=== PATIENT | female | born 1990 | race American Indian/Alaskan Native ===

== ENCOUNTER 2017-02-02 23:54 | Emergency (ER) | payer MEDICAID ==
[2017-02-02 23:56] VITALS: BMI 36.3
[2017-02-03] MEDS ORDERED: Oxycodone/Acetaminophen 5/325 mg Tab PO STA (00:44)
--- NOTE | 2017-02-03 00:48 | ED PDOC ---
Arrival/HPI - General Chief Complaint: Hip Pain Time Seen by Provider: 02/03/17 00:36 Historian: Patient - History of Present Illness Narrative History of Present Illness (Text): 02/03/17 00:45 26 y/o female, pmh including bilateral SCFE hips, nkda, c/o rt. hip pain for years with no new injury or fall. Pt. stated that she has rt. hip pain for years, on and off, started to become more painful this week, xray show no fracture or dislocation, pain radiating from the rt. hip to the rt. calf, no numbness or tingling, no back pain, no dizziness, no other medical or psychological complaints. Past Medical History - Provider Review Nursing Documentation Reviewed: Yes - Infectious Disease Hx of Infectious Diseases: None - Cardiac Hx Cardiac Disorders: No - Pulmonary Hx Respiratory Disorders: No - Neurological Hx Neurological Disorder: No - HEENT Hx HEENT Disorder: No - Renal Hx Renal Disorder: No - Endocrine/Metabolic Hx Endocrine Disorders: No - Hematological/Oncological Hx Blood Disorders: No - Integumentary Hx Dermatological Disorder: No - Musculoskeletal/Rheumatological Hx Musculoskeletal Disorders: No - Gastrointestinal Hx Gastrointestinal Disorders: No - Genitourinary/Gynecological Hx Genitourinary Disorders: No - Psychiatric Hx Psychophysiologic Disorder: No Hx Substance Use: No - Surgical History Hx Orthopedic Surgery: Yes Other/Comment: surgery to place pins in both hips - Anesthesia Hx Anesthesia: Yes Family/Social History - Physician Review Nursing Documentation Reviewed: Yes Family/Social History: Unknown Family HX Smoking Status: Light Smoker < 10 Cigarettes Daily Hx Alcohol Use: Yes Frequency of alcohol use: Socially Hx Substance Use: No Allergies/Home Meds Allergies/Adverse Reactions: Allergies No Known Allergies Allergy (Verified 02/03/17 00:14) Review of Systems - Review of Systems Constitutional: absent: Fatigue, Fevers Eyes: absent: Vision Changes ENT: absent: Hearing Changes Respiratory: absent: Cough Cardiovascular: absent: Chest Pain Gastrointestinal: absent: Abdominal Pain, Nausea, Vomiting Musculoskeletal: Arthralgias, Myalgias. absent: Back Pain, Neck Pain, Joint Swelling Neurological: absent: Headache, Dizziness, Focal Weakness, Gait Changes Psychiatric: absent: Anxiety, Depression, Suicidal Ideation Physical Exam Vital Signs Reviewed: Yes Vital Signs Temp Pulse Resp BP Pulse Ox 02/02/17 23:56 98.4 F 53 L 16 141/62 98 Temperature: Afebrile Blood Pressure: Normal Pulse: Regular Respiratory Rate: Normal Appearance: Positive for: Well-Appearing, Non-Toxic, Comfortable Pain Distress: Severe Mental Status: Positive for: Alert and Oriented X 3 - Systems Exam Head: Present: Atraumatic, Normocephalic Pupils: Present: PERRL Extroacular Muscles: Present: EOMI Conjunctiva: Present: Normal Mouth: Present: Moist Mucous Membranes Neck: Present: Normal Range of Motion Respiratory/Chest: Present: Clear to Auscultation, Good Air Exchange. No: Respiratory Distress, Accessory Muscle Use Cardiovascular: Present: Regular Rate and Rhythm, Normal S1, S2. No: Murmurs Abdomen: Present: Normal Bowel Sounds. No: Tenderness, Distention, Peritoneal Signs Back: Present: Normal Inspection Upper Extremity: Present: Normal Inspection. No: Cyanosis, Edema Lower Extremity: Present: Normal Inspection, Other (painful to move the rt. hip , +ttp on the rt. calf region, FROM without limitation, sensation intact, motor 5/5, +DPPT pulses, no erythematous, no cellulitis, no streaking). No: Edema Neurological: Present: GCS=15, CN II-XII Intact, Speech Normal Skin: Present: Warm, Dry, Normal Color. No: Rashes Psychiatric: Present: Alert, Oriented x 3, Normal Insight, Normal Concentration Medical Decision Making ED Course and Treatment: 02/03/17 00:48 -RLE venuous doppler -Rt. hip CT -Toradol and percocet -observe and reassess 02/03/17 01:56 -RLE Venuous Doppler: as pre preliminary report, there is no acute DVT -CT Rt. hip show degenerative joint changes with subchondrol cyst, no acute fracture or loosen screws. -Pain decreased and pt. feels much better. -I spent 15 minutes talking to the patient about weight loss and outpatient orthopedic follow up which will decrease her pain. -Discharge home with crutches, naproxen, non-weight bearing, follow up with your own pmd and orthopedic within2 days, weightloss will be ideal, return to the ER for any new or worsening signs or symptoms. - RAD Interpretation Radiology Orders: 02/03/17 00:44 HIP WITHOUT CONTRAST RIGHT [CT] Stat DUPLEX LOWER EXTRM VEIN RIGHT [US] Stat RLE Venuous Doppler: as pre preliminary report, there is no acute DVT CT Rt. hip: FINDINGS: Bones/joints: Bilateral femoral screws are seen. No juliann-hardware lucency or evidence of loosening or infection. There are mild/moderate degenerative changes of the hip joint, with several small subchondral cysts in the superior lateral acetabulum. No acute fracture. No dislocation. No joint effusion. Soft tissues: Unremarkable. IMPRESSION: No acute findings.Other findings as described. Thank you for allowing us to participate in the care of your patient. 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 Disposition/Present on Arrival - Present on Arrival Any Indicators Present on Arrival: No History of DVT/PE: No History of Uncontrolled Diabetes: No Urinary Catheter: No History of Decub. Ulcer: No History Surgical Site Infection Following: None - Disposition Have Diagnosis and Disposition been Completed?: Yes Diagnosis: Subchondral cyst, Degenerative joint disease (DJD) of hip Disposition: HOME/ ROUTINE Disposition Time: 01:58 Patient Plan: Discharge Condition: IMPROVED Additional Instructions: Discharge home with crutches, naproxen, non-weight bearing, follow up with your own pmd and orthopedic within2 days, weightloss will be ideal, return to the ER for any new or worsening signs or symptoms. Prescriptions: Naproxen 500 mg PO BID PRN #24 tab PRN Reason: Other Referrals: Sin uDrant MD [Staff Provider] - [facility] up with primary [facility] [Outside] - Follow up with primary Forms: WORK NOTE
[2017-02-03 01:02] VITALS: RESP 16
[2017-02-03 02:14] VITALS: BP 156/76; PULSE 55; TEMP 97.8; O2SAT 100
--- NOTE | 2017-02-03 08:34 | CT ---
Indication: rt. hip pain for years Noncontrast CT of the right hip Comparison: None available. Technique: Noncontrast axial images of the right hip. Sagittal and coronal reformatted images were generated and reviewed. This CT exam was performed using 1 or more of the falling dose reduction techniques: Automated exposure control, adjustment of the MAA and/or kV according to patient size, and/or use of iterative reconstruction technique. Total exam DLP: 1162.55 Findings: Examination limited by habitus. Bilateral femoral screws. No perihardware lucency or evidence of hardware loosening or infection. Mild to moderate degenerative changes of the hip. Subchondral cysts are noted within the superior lateral acetabulum. No acute fracture. No dislocation. No significant joint effusion. The soft tissues appear unremarkable. Limited visualization of the intrapelvic contents appear grossly unremarkable. The uterus is present. All lymph nodes, nonspecific. Impression: No acute findings. See above. Preliminary impression was provided by virtual radiologic.
--- NOTE | 2017-02-03 21:46 | US ---
PROCEDURE: Right lower extremity venous US HISTORY: Leg pain and swelling. Evaluate for DVT. PHYSICIAN(S): Jimbo Gonzales M.D. TECHNIQUE: Duplex sonography and color-flow Doppler with graded compression were used to evaluate the deep venous system of the right lower extremity. FINDINGS: The visualized deep venous system of the right lower extremity is sonographically normal and compressible. Normal waveforms and augmentation are seen. There is no sonographic evidence for deep venous thrombosis in the visualized segments of the right lower extremity. IMPRESSION: 1. No sonographic evidence for deep venous thrombosis in the visualized segments of the right lower extremity.
== END 2017-02-03 02:19 | disposition home or self-care (01) ==
LOC: ED 23:54
DX: M16.11 Unilateral primary osteoarthritis, right hip (principal); M25.851 Other specified joint disorders, right hip
CPT/HCPCS: 73700; 93971; 96372; 99284; J1885

== ENCOUNTER 2017-07-30 16:47 | Emergency (ER) | payer MEDICAID ==
[2017-07-30 16:47] VITALS: BMI 36.3
[2017-07-30 17:03] VITALS: RESP 18; TEMP 97.5
--- NOTE | 2017-07-30 17:20 | ED PDOC ---
Arrival/HPI - General Chief Complaint: Upper Extremity Problem/Injury Time Seen by Provider: 07/30/17 17:08 - History of Present Illness Narrative History of Present Illness (Text): 26 y/o F c PMHx SCFE (can not undergo MRI) p/w L shoulder pain x 6 months. Pain is sharp, sudden, worse with moving shoulder or lifting weight. Denies fever, injury, numbness, weakness. Past Medical History - Infectious Disease Hx of Infectious Diseases: None - Cardiac Hx Cardiac Disorders: No - Pulmonary Hx Respiratory Disorders: No - Neurological Hx Neurological Disorder: No - HEENT Hx HEENT Disorder: No - Renal Hx Renal Disorder: No - Endocrine/Metabolic Hx Endocrine Disorders: No - Hematological/Oncological Hx Blood Disorders: No - Integumentary Hx Dermatological Disorder: No - Musculoskeletal/Rheumatological Hx Musculoskeletal Disorders: No - Gastrointestinal Hx Gastrointestinal Disorders: No - Genitourinary/Gynecological Hx Genitourinary Disorders: No - Psychiatric Hx Psychophysiologic Disorder: No Hx Substance Use: No - Surgical History Hx Orthopedic Surgery: Yes Other/Comment: surgery to place pins in both hips - Anesthesia Hx Anesthesia: Yes Family/Social History Family/Social History: No Known Family HX Smoking Status: Light Smoker < 10 Cigarettes Daily Hx Alcohol Use: Yes Frequency of alcohol use: Socially Hx Substance Use: No Allergies/Home Meds Allergies/Adverse Reactions: Allergies No Known Allergies Allergy (Verified 07/30/17 17:03) Home Medications: Home Meds Medication Instructions Recorded Confirmed No Known Home Med 07/30/17 07/30/17 Review of Systems - Physician Review All systems were reviewed & negative as marked: Yes - Review of Systems Constitutional: absent: Fevers Cardiovascular: absent: Chest Pain Physical Exam - Physical Exam Narrative Physical Exam (Text): Constitutional: No acute distress. Head: Normocephalic. Atraumatic. ENT: Moist mucous membranes. Neck: No midline tenderness. Cardiovascular: Radial pulse 2+. Chest: No tenderness. Respiratory: No accessory muscle use. Back: No midline tenderness. Musculoskeletal: L shoulder FROM, no deformity. Skin: No rash. Neurologic: Alert, no focal deficit. Sensation to light touch intact in deltoid and hand. Moves all digits, wrist, elbow, shoulder. Vital Signs Temp Pulse Resp BP Pulse Ox 07/30/17 16:58 97.5 F L 79 18 129/74 99 Medical Decision Making ED Course and Treatment: XR to evaluate for fracture or shoulder dislocation. Will require follow up with Ortho. XR shows no fracture or dislocation or Hill Sachs/Bankhart deformities. Will discharge, return for fever, inability to range, erythema. - RAD Interpretation Radiology Orders: 07/30/17 17:16 SHOULDER LEFT [RAD] Stat - Medication Orders Current Medication Orders: Discontinued Medications Acetaminophen (Tylenol 325mg Tab) 650 mg PO STAT STA Stop: 07/30/17 17:24 Last Admin: 07/30/17 17:28 Dose: 650 mg MAR Pain/Vitals Document 07/30/17 17:28 GMD (Rec: 07/30/17 17:29 GMD [facility] [id number]) Pain Reassessment Is This A Pain ReAssessment? No Sleep Is patient sleeping during reassessment? No Presence of Pain Presence of Pain Yes Pain Scale Used Pain Scale Used Numeric Location Left, Right or Bilateral Left Pain Location Body Site Shoulder Disposition/Present on Arrival - Present on Arrival Any Indicators Present on Arrival: No History of DVT/PE: No History of Uncontrolled Diabetes: No Urinary Catheter: No History of Decub. Ulcer: No History Surgical Site Infection Following: None - Disposition Have Diagnosis and Disposition been Completed?: Yes Diagnosis: Shoulder pain Disposition: HOME/ ROUTINE Disposition Time: 17:50 Patient Plan: Discharge Condition: STABLE Discharge Instructions (ExitCare): Shoulder Pain (ED) Referrals: [facility] at [facility] [Outside] - Follow up with primary Forms: [employer] (Frisian)
[2017-07-30 17:56] VITALS: BP 120/76; PULSE 72; O2SAT 98
--- NOTE | 2017-07-31 08:12 | RAD ---
PROCEDURE: Radiographs of the Left Shoulder HISTORY: L shoulder pain COMPARISON: No prior. FINDINGS: BONES: Normal. No fracture. JOINTS: Normal. Glenohumeral and acromioclavicular joints preserved. No osteoarthritis. SOFT TISSUES: Normal. OTHER FINDINGS: None. IMPRESSION: Normal radiographs of the left shoulder.
== END 2017-07-30 17:56 | disposition home or self-care (01) ==
LOC: ED 16:47
DX: M25.512 Pain in left shoulder (principal); F17.210 Nicotine dependence, cigarettes, uncomplicated

== ENCOUNTER 2018-04-12 23:45 | Emergency (ER) | payer MEDICAID ==
[2018-04-12 23:52] VITALS: RESP 18; TEMP 98.5; O2SAT 100; BMI 38.9
--- NOTE | 2018-04-13 00:55 | ED PDOC ---
Arrival/HPI - General Chief Complaint: Lower Extremity Problem/Injury Time Seen by Provider: 04/13/18 00:07 Historian: Patient - History of Present Illness Narrative History of Present Illness (Text): 04/13/18 00:48 27yo morbidly obese female with no pmhx bib the EMS for left hip pain that radiates laterally to her knee. states pain started a week ago and worsen today. Reports surgical history of b/l hip replacement when she was a child. States she never had pain on the hip until a week ago. Pain is worse with ambulation. Was taking a left over Ibuprofen 600mg with some relieve. Reports intermittent chronic history of lower back pain, but not currently. Denies trauma ,focal weakness, abdominal pain, saddle anesthesia, urinary symptoms, any other complaint. Past Medical History - Provider Review Nursing Documentation Reviewed: Yes - Infectious Disease Hx of Infectious Diseases: None - Cardiac Hx Cardiac Disorders: No - Pulmonary Hx Respiratory Disorders: No - Neurological Hx Neurological Disorder: No - HEENT Hx HEENT Disorder: No - Renal Hx Renal Disorder: No - Endocrine/Metabolic Hx Endocrine Disorders: No - Hematological/Oncological Hx Blood Disorders: No - Integumentary Hx Dermatological Disorder: No - Musculoskeletal/Rheumatological Hx Musculoskeletal Disorders: No - Gastrointestinal Hx Gastrointestinal Disorders: No - Genitourinary/Gynecological Hx Genitourinary Disorders: No - Psychiatric Hx Psychophysiologic Disorder: No Hx Substance Use: No - Surgical History Hx Orthopedic Surgery: Yes Other/Comment: surgery to place pins in both hips - Anesthesia Hx Anesthesia: Yes Hx Anesthesia Reactions: No Hx Malignant Hyperthermia: No Family/Social History - Physician Review Nursing Documentation Reviewed: Yes Family/Social History: Unknown Family HX Smoking Status: Light Smoker < 10 Cigarettes Daily Hx Alcohol Use: Yes Hx Substance Use: No Allergies/Home Meds Allergies/Adverse Reactions: Allergies No Known Allergies Allergy (Verified 07/30/17 17:03) Review of Systems - Physician Review All systems were reviewed & negative as marked: Yes - Review of Systems Constitutional: Normal Eyes: Normal ENT: Normal Respiratory: Normal Cardiovascular: Normal Gastrointestinal: Normal Genitourinary Female: Normal Musculoskeletal: Arthralgias (Left hip pain) Skin: Normal Neurological: Normal Endocrine: Normal Hemo/Lymphatic: Normal Psychiatric: Normal Physical Exam Vital Signs Reviewed: Yes Vital Signs Temp Pulse Resp BP Pulse Ox 04/13/18 02:24 75 18 126/82 100 04/12/18 23:51 98.5 F 73 18 127/48 L 100 Temperature: Afebrile Blood Pressure: Normal Pulse: Regular Respiratory Rate: Normal Appearance: Positive for: Well-Appearing, Non-Toxic, Comfortable Pain Distress: None Mental Status: Positive for: Alert and Oriented X 3 - Systems Exam Head: Present: Atraumatic, Normocephalic Pupils: Present: PERRL Extroacular Muscles: Present: EOMI Conjunctiva: Present: Normal Mouth: Present: Moist Mucous Membranes Neck: Present: Normal Range of Motion Respiratory/Chest: Present: Clear to Auscultation, Good Air Exchange. No: Respiratory Distress, Accessory Muscle Use Cardiovascular: Present: Regular Rate and Rhythm, Normal S1, S2. No: Murmurs Abdomen: No: Tenderness, Distention, Peritoneal Signs Back: Present: Normal Inspection Upper Extremity: Present: Normal Inspection. No: Cyanosis, Edema Lower Extremity: Present: NORMAL PULSES, Normal ROM (With pain on internal adduction of left hip), Tenderness (LAteral left hip), Neurovascularly Intact. No: Edema, CALF TENDERNESS, Swelling Neurological: Present: GCS=15, CN II-XII Intact, Speech Normal Skin: Present: Warm, Dry, Normal Color. No: Rashes Psychiatric: Present: Alert, Oriented x 3, Normal Insight, Normal Concentration Medical Decision Making ED Course and Treatment: 04/14/18 00:16 B/L hip xray - Pin noted in place. No acute finding Pt's pain was controlled in ED. She was Ambulatory. Result was DW the pt and she was referred to ortho. - RAD Interpretation Radiology Orders: 04/13/18 00:23 Hip Bilateral [HIP MIN 3V W/ PELVIS [place]] [RAD] Stat - Medication Orders Current Medication Orders: Discontinued Medications Cyclobenzaprine HCl (Flexeril) 10 mg PO STAT STA Stop: 04/13/18 00:25 Last Admin: 04/13/18 00:39 Dose: 10 mg Ketorolac Tromethamine (Toradol) 60 mg IM STAT STA Stop: 04/13/18 00:25 Last Admin: 04/13/18 00:39 Dose: 60 mg MAR Pain Assessment Document 04/13/18 00:39 AD (Rec: 04/13/18 00:39 AD [id number]) Pain Reassessment Is this a pain reassessment? No Description Intensity of Pain at present 8 IM Administration Charges Document 04/13/18 00:39 AD (Rec: 04/13/18 00:39 AD [facility] [id number]) Injection Site MAR Injection Site Left Deltoid Charges for Administration # of IM Administrations 1 Disposition/Present on Arrival - Present on Arrival Any Indicators Present on Arrival: No History of DVT/PE: No History of Uncontrolled Diabetes: No Urinary Catheter: No History of Decub. Ulcer: No History Surgical Site Infection Following: None - Disposition Have Diagnosis and Disposition been Completed?: Yes Diagnosis: Hip pain Disposition: HOME/ ROUTINE Disposition Time: 02:10 Patient Plan: Discharge Condition: STABLE Discharge Instructions (ExitCare): Hip Pain Additional Instructions: Follow up with your doctor/orthopedist Return to ED for any new or worsening symptoms Prescriptions: Cyclobenzaprine [Cyclobenzaprine HCl] 10 mg PO BID #10 tab Naproxen [Naprosyn] 500 mg PO BID #20 tablet Referrals: Kobe Garza MD [Primary Care Provider] - Follow up with primary Cody Lundberg DO [Staff Provider] - Follow up with primary Forms: [employer] (Rwandan)
[2018-04-13 02:51] VITALS: BP 126/82; PULSE 75
--- NOTE | 2018-04-13 10:14 | RAD ---
PROCEDURE: Radiographs of the pelvis and bilateral hips HISTORY: left hip pain COMPARISON: None. FINDINGS: BONES: Pelvis: Screws are seen in both femoral heads Right hip:Unremarkable. Left hip:There is a chronic appearing deformity of the left femoral head. Mild degenerative changes are seen. JOINTS: Right hip: Unremarkable. Left hip: Unremarkable. Sacroiliac Joints: Unremarkable. Pubic symphysis: Unremarkable. SOFT TISSUES: Normal. OTHER FINDINGS: None. 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 Single screws in both hips
== END 2018-04-13 02:24 | disposition home or self-care (01) ==
LOC: ED 23:45
DX: M25.552 Pain in left hip (principal)
CPT/HCPCS: 73522; 96372; 99284; J1885